=== PATIENT | female | born 1975 | race Caucasian/White ===

== ENCOUNTER 2021-03-21 19:02 | Emergency (ER) | payer OTHER ==
[2021-03-21] MEDS ORDERED: ACETAMINOPHEN 325 MG TABLET PO STA (19:32)
[2021-03-21] MEDS ORDERED: SODIUM CHLORIDE 0.9% 1,000 ML IV STA (19:32)
--- NOTE | 2021-03-21 19:34 | ED Physician Documentation ---
PD HPI SYNCOPE - Stated complaint Stated Complaint: PASSED OUT/RT HIP PX - Chief complaint Chief Complaint: Neuro - History obtained from History obtained from: Patient, Friend - Additional information Additional information: This is a generally healthy 45-year-old woman. 10 years ago she was having a lot of trouble with endometriosis and had a hysterectomy and bowel resection for same. She is maintained on hormone therapy but is otherwise healthy with no other surgeries in the past. Last week she has had indolent atraumatic and worsening right hip pain. Today she went for a walk and the pain became quite severe. She sat down on a bench and started to become woozy for about 2 minutes before syncopized them for about 30 seconds without postictal period. There was no seizure activity. She is never passed out before. No associated chest pain or trouble breathing. No pedal edema or calf pain. She has been fully immunized against Covid. A few years since her last mammogram. Review of Systems Ten Systems: 10 systems reviewed and negative Constitutional: reports: Fatigue Cardiac: denies: Chest pain / pressure, Palpitations Respiratory: denies: Dyspnea, Cough PD PAST MEDICAL HISTORY - Present Medications Home Medications: Ambulatory Orders Medication Instructions Recorded Confirmed Estrogen Patch 03/21/21 Estrogens, Conjugated Cream 1 gm VG QPM 03/21/21 03/21/21 [Premarin Cream] - Allergies Allergies/Adverse Reactions: Allergies Allergy/AdvReac Type Severity Reaction Status Date / Time No Known Drug Allergies Allergy Verified 03/21/21 19:11 PD ED PE NORMAL - Vitals Vital signs reviewed: Yes - General General: Alert and oriented X 3, No acute distress, Well developed/nourished - HEENT HEENT: PERRL, EOMI, Ears normal, Pharynx benign - Neck Neck: Supple, no meningeal sign, No bony TTP - Cardiac Cardiac: RRR, No murmur - Respiratory Respiratory: No respiratory distress, Clear bilaterally - Abdomen Abdomen: Normal bowel sounds, Soft, Non tender - Back Back: No CVA TTP, No spinal TTP - Derm Derm: Normal color, Warm and dry - Extremities Extremities: Other (Significant pain with especially external rotation more than internal rotation of the right hip without bony tenderness of the hip itself. 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, Normal speech Eye Opening: Spontaneous Motor: Obeys Commands Verbal: Oriented GCS Score: 15 Results - Vitals Vitals: Vital Signs - 24 hr 03/21/21 19:08 Temperature 36.5 C Heart Rate 63 Respiratory 16 Rate Blood Pressure 114/75 O2 Saturation 99 Oxygen O2 Source Room air - EKG (time done) 1919 Rate: Rate (enter#) (56) Rhythm: NSR [place]: Normal Intervals: Normal LA QRS: Normal Ischemia: Normal ST segments Computer interpretation: Agree with computer - Labs Labs: Laboratory Tests 03/21/21 03/21/21 03/21/21 19:27 19:27 19:27 WBC 12.1 H RBC 4.29 Hgb 13.1 Hct 40.2 MCV 93.7 MCH 30.5 MCHC 32.6 RDW 13.0 Plt Count 209 MPV 11.0 H Neut # (Auto) 9.6 H Lymph # (Auto) 1.6 Newton # (Auto) 0.8 Eos # (Auto) 0.1 Baso # (Auto) 0.1 Absolute Nucleated RBC 0.00 Nucleated RBC % 0.0 D-Dimer Sodium 135 Potassium 3.6 Chloride 98 L Carbon Dioxide 27 Anion Gap 10.0 BUN 17 Creatinine 1.0 Estimated GFR (MDRD) 59 L Glucose 111 H Calcium 8.4 L Total Bilirubin 1.0 AST 19 ALT 12 Alkaline Phosphatase 47 Troponin I High Sens < 2.3 L B-Natriuretic Peptide Total Protein 6.8 Albumin 4.4 Globulin 2.4 Albumin/Globulin Ratio 1.8 03/21/21 03/21/21 19:27 19:45 WBC RBC Hgb Hct MCV MCH MCHC RDW Plt Count MPV Neut # (Auto) Lymph # (Auto) Newton # (Auto) Eos # (Auto) Baso # (Auto) Absolute Nucleated RBC Nucleated RBC % D-Dimer < 200.0 L Sodium Potassium Chloride Carbon Dioxide Anion Gap BUN Creatinine Estimated GFR (MDRD) Glucose Calcium Total Bilirubin AST ALT Alkaline Phosphatase Troponin I High Sens B-Natriuretic Peptide 17 Total Protein Albumin Globulin Albumin/Globulin Ratio PD MEDICAL DECISION MAKING - ED course ED course: 45-year-old woman with syncopal episode after painful episode with her hip. X- ray of the hip was negative. No serious cause of syncope identified and her history is consistent with vasovagal syncope. Departure - Departure Disposition: 01 Home, Self Care Clinical Impression: Right hip pain Syncope Qualifiers: Syncope type: vasovagal syncope Qualified Code(s): R55 - Syncope and collapse Condition: Good Record reviewed to determine appropriate education?: Yes Instructions: ED Syncope Vasovagal Comments: Given the hip pain, I would recommend you follow-up with your physician, return if worse or if you develop infectious symptoms such as fever. Otherwise consider MRI of the hip since the x-ray was negative to evaluate things like potentially a labral tear. Tylenol as needed for pain. Do not drive today.
[2021-03-21 19:37] LABS: BASOPHILS # (AUTO) 0.1 10^3/uL (0.0-0.1); BASOPHILS % (AUTO) 0.6 %; EOSINOPHILS # (AUTO) 0.1 10^3/uL (0.0-0.7); EOSINOPHILS % (AUTO) 0.4 %; HCT - HEMATOCRIT 40.2 % (37.0-47.0); HGB - HEMOGLOBIN 13.1 g/dL (12.0-16.0); LYMPHOCYTES # (AUTO) 1.6 10^3/uL (1.5-3.5); LYMPHOCYTES % (AUTO) 13.1 %; MEAN CORPUSCULAR HEMOGLOBIN 30.5 pg (27.0-31.0); MEAN CORPUSCULAR HGB CONC 32.6 g/dL (32.0-36.0); MEAN CORPUSCULAR VOLUME 93.7 fL (81.0-99.0); MONOCYTES # (AUTO) 0.8 10^3/uL (0.0-1.0); MONOCYTES % (AUTO) 6.5 %; NEUTROPHILS # (AUTO) 9.6 10^3/uL (1.5-6.6); NEUTROPHILS % (AUTO) 79.1 %; PLT - PLATELET COUNT 209 10^3/uL (130-450); RED BLOOD COUNT 4.29 10^6/uL (4.20-5.40); WHITE BLOOD COUNT 12.1 x10^3/uL (4.8-10.8)
[2021-03-21 19:49] LABS: ALBUMIN 4.4 g/dL (3.2-5.5); ALBUMIN/GLOBULIN RATIO 1.8 (1.0-2.2); CALCIUM 8.4 mg/dL (8.5-10.3); POTASSIUM 3.6 mmol/L (3.5-5.0); TOTAL PROTEIN 6.8 g/dL (6.7-8.2)
--- NOTE | 2021-03-21 20:26 | XRAY Report ---
PROCEDURE: Hip w/Pelvis 2-3V RT INDICATIONS: hip pain TECHNIQUE: AP pelvis with lateral view(s) of the right hip(s). COMPARISON: None. FINDINGS: Bones: No fractures or dislocations. Pelvic ring appears intact. No suspicious bony lesions. Soft tissues: The visualized bowel gas pattern is normal. No suspicious soft tissue calcifications. IMPRESSION: Normal right hip. Reviewed by: Kenisha Rouse MD on 03/21/2021 8:25 PM PDT Approved by: Kenisha Rouse MD on 03/21/2021 8:25 PM PDT Station ID: [id number]
[2021-03-21 20:58] VITALS: BP 111/69
== END 2021-03-21 22:06 | disposition home or self-care (01) ==
LOC: ED 19:02
DX: M25.551 Pain in right hip (principal); R55 Syncope and collapse
CPT/HCPCS: 36415; 73502; 80053; 83880; 84484; 85025; 85379; 93005; 96360; 99284; A9270

== ENCOUNTER 2022-04-25 12:49 | Emergency (ER) | payer OTHER ==
[2022-04-25 13:16] LABS: BASOPHILS # (AUTO) 0.1 10^3/uL (0.0-0.1); BASOPHILS % (AUTO) 1.3 %; EOSINOPHILS # (AUTO) 0.1 10^3/uL (0.0-0.7); EOSINOPHILS % (AUTO) 1.1 %; HCT - HEMATOCRIT 41.4 % (37.0-47.0); HGB - HEMOGLOBIN 13.8 g/dL (12.0-16.0); LYMPHOCYTES % (AUTO) 20.8 %; MEAN CORPUSCULAR HEMOGLOBIN 30.6 pg (27.0-31.0); MEAN CORPUSCULAR HGB CONC 33.3 g/dL (32.0-36.0); MEAN CORPUSCULAR VOLUME 91.8 fL (81.0-99.0); MEAN PLATELET VOLUME 11.2 fL (7.9-10.8); MONOCYTES # (AUTO) 0.5 10^3/uL (0.0-1.0); MONOCYTES % (AUTO) 10.1 %; NEUTROPHILS # (AUTO) 3.2 10^3/uL (1.5-6.6); NEUTROPHILS % (AUTO) 66.5 %; PLT - PLATELET COUNT 204 10^3/uL (130-450); RED BLOOD COUNT 4.51 10^6/uL (4.20-5.40); RED CELL DISTRIBUTION WIDTH 13.2 % (12.0-15.0); WHITE BLOOD COUNT 4.8 x10^3/uL (4.8-10.8)
--- NOTE | 2022-04-25 13:25 | XRAY Report ---
PROCEDURE: Chest 1 View X-Ray INDICATIONS: Chest pain TECHNIQUE: One view of the chest was acquired. COMPARISON: None FINDINGS: Surgical changes and devices: None. Lungs and pleura: No pleural effusions or pneumothorax. Lungs are clear. Mediastinum: Mediastinal contours appear normal. Heart size is normal. Bones and chest wall: No suspicious bony lesions. Overlying soft tissues appear unremarkable. IMPRESSION: No acute cardiopulmonary findings. Reviewed by: Addie Fermin MD on 04/25/2022 1:23 PM PDT Approved by: Addie Fermin MD on 04/25/2022 1:23 PM PDT Station ID: [id number]
[2022-04-25 13:26] LABS: ALBUMIN 4.3 g/dL (3.2-5.5); ALBUMIN/GLOBULIN RATIO 1.7 (1.0-2.2); BILIRUBIN,TOTAL 0.8 mg/dL (0.2-1.0); CALCIUM 8.9 mg/dL (8.5-10.3); CREATININE 0.7 mg/dL (0.4-1.0); POTASSIUM 3.9 mmol/L (3.5-5.0); TOTAL PROTEIN 6.8 g/dL (6.7-8.2)
--- NOTE | 2022-04-25 13:30 | ED Physician Documentation ---
History of Present Illness - Stated complaint Stated Complaint: HEART PALP/SOA - Chief complaint Chief Complaint: Cardiac - Additonal information Additional information: 38-year-old female presents emergency department for evaluation of palpitations. 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 She states the sensation lasted for about less than a minute but she felt as though she was going to pass out. Once that went away she began to feel just generally weak as well as having some shortness of breath. She denies that she was having any chest pain. After her symptoms and go away for about an hour she called her partner who drove her to the hospital. No history of hypertension or diabetes. Does not know family history of tachyarrhythmia. She has not fainted. No fevers cough. Review of Systems Constitutional: reports: Fatigue. denies: Fever, Chills Nose: reports: Reviewed and negative Throat: reports: Reviewed and negative Cardiac: reports: Palpitations. denies: Chest pain / pressure, Pedal edema, Calf pain Respiratory: reports: Dyspnea. denies: Cough GI: reports: Reviewed and negative : reports: Reviewed and negative Skin: reports: Reviewed and negative Musculoskeletal: reports: Reviewed and negative PD PAST MEDICAL HISTORY - Past Medical History ACTIVITIES LEADER: Endometriosis - Past Surgical History Past Surgical History: Yes General: Bowel surgery /ACTIVITIES LEADER: Hysterectomy - Present Medications Home Medications: Ambulatory Orders Medication Instructions Recorded Confirmed Estrogen Patch 03/21/21 Estrogens, Conjugated Cream 1 gm VG QPM 03/21/21 03/21/21 [Premarin Cream] - Allergies Allergies/Adverse Reactions: Allergies Allergy/AdvReac Type Severity Reaction Status Date / Time No Known Drug Allergies Allergy Verified 04/25/22 12:58 - Social History Does the pt smoke?: No Smoking Status: Never smoker Does the pt drink ETOH?: No Does the pt have substance abuse?: No PD ED PE NORMAL - General General: Alert and oriented X 3, No acute distress - HEENT HEENT: PERRL - Neck Neck: No adenopathy - Cardiac Cardiac: RRR, No murmur, No gallop, Strong equal pulses - Respiratory Respiratory: No respiratory distress, Clear bilaterally - Abdomen Abdomen: Normal bowel sounds, Soft - Derm Derm: Warm and dry - Extremities Extremities: No deformity - Neuro Neuro: Alert and oriented X 3, pet ambassador 2-12 intact Eye Opening: Spontaneous Motor: Obeys Commands Verbal: Oriented GCS Score: 15 Results - Vitals Vitals: Vital Signs - 24 hr 04/25/22 12:53 Temperature 36.4 C L Heart Rate 52 L Respiratory 16 Rate Blood Pressure 139/64 H O2 Saturation 100 Oxygen O2 Source Room air - EKG (time done) 1252 Rate: Rate (enter#) Rhythm: NSR [place]: Normal Intervals: Normal [place] QRS: Normal Ischemia: Normal ST segments Compare to prior EKG: Old EKG unavailable Computer interpretation: Agree with computer - Labs Labs: Laboratory Tests 04/25/22 04/25/22 04/25/22 13:08 13:08 13:08 WBC 4.8 RBC 4.51 Hgb 13.8 Hct 41.4 MCV 91.8 MCH 30.6 MCHC 33.3 RDW 13.2 Plt Count 204 MPV 11.2 H Neut # (Auto) 3.2 Lymph # (Auto) 1.0 L [place] # (Auto) 0.5 Eos # (Auto) 0.1 Baso # (Auto) 0.1 Absolute Nucleated RBC 0.00 Nucleated RBC % 0.0 Sodium 137 Potassium 3.9 Chloride 103 Carbon Dioxide 27 Anion Gap 7.0 BUN 15 Creatinine 0.7 Estimated GFR (MDRD) 89 Glucose 105 H Calcium 8.9 Total Bilirubin 0.8 AST 21 ALT 13 Alkaline Phosphatase 40 L Troponin I High Sens < 2.3 L Total Protein 6.8 Albumin 4.3 Globulin 2.5 Albumin/Globulin Ratio 1.7 Lipase 40 TSH 04/25/22 13:08 WBC RBC Hgb Hct MCV MCH MCHC RDW Plt Count MPV Neut # (Auto) Lymph # (Auto) [place] # (Auto) Eos # (Auto) Baso # (Auto) Absolute Nucleated RBC Nucleated RBC % Sodium Potassium Chloride Carbon Dioxide Anion Gap BUN Creatinine Estimated GFR (MDRD) Glucose Calcium Total Bilirubin AST ALT Alkaline Phosphatase Troponin I High Sens Total Protein Albumin Globulin Albumin/Globulin Ratio Lipase TSH 1.44 - Rads (name of study) cxr Radiology: Final report received (No acute cardiopulmonary findings) PD MEDICAL DECISION MAKING - ED course Complexity details: considered differential, d/w patient ED course: 38-year-old female presents emergency department for evaluation of palpitations and a racing heart that she noticed this morning. No history of similar in the past. On presentation to the emergency department she is well-appearing. EKG shows normal sinus rhythm. While here on the monitor she has had no ectopy or tachyarrhythmia. We did obtain routine labs and included CBC electrolytes TSH and troponin. All were essentially unremarkable. Chest x-ray was without acute focal findings. Etiology of her brief palpitations is not clear. I am advising patient close follow-up with PCP. She would likely benefit from a Holter monitor. 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 Here in the emergency Department we did obtain screening labs that were essentially normal for age including your troponin and and your thyroid. Your EKG is normal. Your chest x-ray is normal. I encourage you to follow closely with your primary care provider you would benefit from referral for a Holter. Reasons to return to the emergency department would include sudden severe chest pain, shortness of air, any fainting episodes or the sustained sensation of a racing heart
[2022-04-25 14:16] VITALS: BP 120/80
== END 2022-04-25 14:15 | disposition home or self-care (01) ==
LOC: ED 12:49
DX: R00.2 Palpitations (principal)
CPT/HCPCS: 36415; 80053; 83690; 84443; 84484; 85025; 93005; 99284

== ENCOUNTER 2022-07-02 09:19 | Outpatient (CLI) | payer OTHER ==
[2022-07-02 15:19] LABS: BUN - BLOOD UREA NITROGEN 16 mg/dL (6-20); CALCIUM 8.3 mg/dL (8.5-10.3); CARBON DIOXIDE - CO2 26 mmol/L (21-32); CHLORIDE 104 mmol/L (101-111); CHOL/HDL RATIO 3.3 (<4.4); CHOLESTEROL 173 mg/dL; CREATININE 0.6 mg/dL (0.4-1.0); GFR - MDRD 107 (>89); GLUCOSE 92 mg/dL (70-100); HDL CHOLESTEROL 52 mg/dL; LDL CHOLESTEROL,CALCULATED 111 mg/dL; LDL/HDL RATIO 2.1 (<4.4); SODIUM 136 mmol/L (135-145); TRIGLYCERIDES 48 mg/dL; VLDL CHOLESTEROL 10 mg/dL
[2022-07-02 15:25] LABS: CRP - C-REACTIVE PROTEIN < 1.0 mg/dL (0-1.0)
[2022-07-05 20:07] LABS: MAGNESIUM RBC 5.4 mg/dL (4.2-6.8)
== END 2022-07-02 09:20 | disposition home or self-care (01) ==
LOC: LAB.S 09:19
PROVIDERS: ATTEND Naturopath
DX: R00.2 Palpitations (principal); R06.02 Shortness of breath; R53.83 Other fatigue
CPT/HCPCS: 36415; 80048; 80061; 81599; 82172; 82175; 82300; 83655; 83721; 83735; 83825; 86140

== ENCOUNTER 2023-04-17 12:15 | Outpatient (CLI) | payer OTHER ==
[2023-04-17 18:02] LABS: BASOPHILS # (AUTO) 0.1 10^3/uL (0.0-0.1); BASOPHILS % (AUTO) 0.9 %; EOSINOPHILS % (AUTO) 0.6 %; HCT - HEMATOCRIT 45.4 % (37.0-47.0); HGB - HEMOGLOBIN 14.6 g/dL (12.0-16.0); LYMPHOCYTES # (AUTO) 1.4 10^3/uL (1.5-3.5); LYMPHOCYTES % (AUTO) 25.4 %; MEAN CORPUSCULAR HEMOGLOBIN 29.6 pg (27.0-31.0); MEAN CORPUSCULAR HGB CONC 32.2 g/dL (32.0-36.0); MEAN CORPUSCULAR VOLUME 92.1 fL (81.0-99.0); MEAN PLATELET VOLUME 11.8 fL (7.9-10.8); MONOCYTES # (AUTO) 0.4 10^3/uL (0.0-1.0); MONOCYTES % (AUTO) 6.7 %; NEUTROPHILS # (AUTO) 3.6 10^3/uL (1.5-6.6); NEUTROPHILS % (AUTO) 66.2 %; PLT - PLATELET COUNT 250 10^3/uL (130-450); RED BLOOD COUNT 4.93 10^6/uL (4.20-5.40); WHITE BLOOD COUNT 5.4 x10^3/uL (4.8-10.8)
[2023-04-17 18:12] LABS: ALBUMIN 4.4 g/dL (3.2-5.5); ALBUMIN/GLOBULIN RATIO 1.6 (1.0-2.2); BILIRUBIN,TOTAL 0.8 mg/dL (0.2-1.0); CALCIUM 9.1 mg/dL (8.5-10.3); CREATININE 0.7 mg/dL (0.6-1.3); POTASSIUM 4.1 mmol/L (3.5-4.5); TOTAL PROTEIN 7.2 g/dL (6.4-8.9)
== END 2023-04-17 12:30 | disposition home or self-care (01) ==
LOC: LAB.N 12:15
PROVIDERS: ATTEND Registered Nurse
DX: R10.9 Unspecified abdominal pain (principal); V49.50XA Passenger injured in collision with unspecified motor vehicles in traffic accident, initial encounter
CPT/HCPCS: 36415; 80053; 85025

== ENCOUNTER 2023-04-17 14:05 | Outpatient (CLI) | payer OTHER ==
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
== END 2023-04-17 14:06 | disposition home or self-care (01) ==
LOC: DI 14:05
PROVIDERS: ATTEND Registered Nurse
DX: R10.9 Unspecified abdominal pain (principal)
CPT/HCPCS: 36415; 80053; 85025

== ENCOUNTER 2023-04-21 08:00 | Outpatient (CLI) | payer OTHER ==
--- NOTE | 2023-04-21 17:49 | XRAY Report ---
PROCEDURE: Hip 2 View RT INDICATIONS: RIGHT HIP PAIN TECHNIQUE: An AP view of the pelvis and a frog-leg lateral view of the right hip were acquired. COMPARISON: None. FINDINGS: Bones: No fractures or dislocations. No suspicious bony lesions. Mild right hip degenerative paulino ge. Soft tissues: No suspicious soft tissue calcifications or masses. IMPRESSION: Mild right hip degenerative change. No acute bony abnormality. Comment: If there remains a high clinical concern for fracture, consider cross-sectional imaging now. If pain persists, consider repeat x-ray in 10-14 days or cross-sectional imaging. Reviewed by: Johnny Morelos MD on 04/21/2023 5:47 PM PDT Approved by: Johnny Morelos MD on 04/21/2023 5:47 PM PDT Station ID: [id number]
== END 2023-04-21 23:59 | disposition home or self-care (01) ==
LOC: DI.WOS 08:00
PROVIDERS: ATTEND Orthopaedic Surgery Sports Medicine
DX: M16.11 Unilateral primary osteoarthritis, right hip (principal)

== ENCOUNTER 2023-04-23 14:21 | Outpatient (CLI) | payer OTHER ==
--- NOTE | 2023-04-23 18:16 | XRAY Report ---
PROCEDURE: Cervical Spine Complete INDICATIONS: CERVICAL SPINE/THORACIC PAIN TECHNIQUE: 4 views of the cervical spine acquired. COMPARISON: None. FINDINGS: Bones: No fractures or dislocations to the T1 level. Disc space narrowing and anterior osteophyte C6 -7. Flexion and extension views shows no evidence of segmental instability. Soft tissues: No prevertebral soft tissue swelling. IMPRESSION: C6-7 degenerative disc disease without segmental instability Reviewed by: Jason Rich MD on 04/23/2023 5:15 PM DAREN Approved by: Jason Rich MD on 04/23/2023 5:15 PM AKKEKE Station ID: [id number]
--- NOTE | 2023-04-23 18:17 | XRAY Report ---
PROCEDURE: Thoracic Spine 2 View INDICATIONS: CERVICAL SPINE/THORACIC PAIN TECHNIQUE: 2 views of the thoracic spine were acquired. COMPARISON: None. FINDINGS: Bones: No fractures or dislocations. No suspicious bony lesions. 12 pairs of ribs are noted, and a ppear intact where visualized. Soft tissues: No paravertebral stripe thickening. IMPRESSION: Unremarkable thoracic spine radiographs Reviewed by: Jason Rich MD on 04/23/2023 5:16 PM [facility]DT Approved by: Jason Rich MD on 04/23/2023 5:16 PM AKDT Station ID: [id number]
== END 2023-04-23 14:22 | disposition home or self-care (01) ==
LOC: DI 14:21
PROVIDERS: ATTEND Naturopath
DX: M54.6 Pain in thoracic spine (principal); S13.4XXA Sprain of ligaments of cervical spine, initial encounter; M50.323 Other cervical disc degeneration at C6-C7 level

== ENCOUNTER 2023-08-04 10:55 | Outpatient (CLI) | payer OTHER ==
--- NOTE | 2023-08-04 21:03 | XRAY Report ---
PROCEDURE: Sinus Complete INDICATIONS: PERSISTANT DIZZINESS AND SINUS SYMPTOMS TECHNIQUE: 3 views of the sinuses were acquired. COMPARISON: None FINDINGS: Sinuses: The visualized sinuses well aerated without air-fluid levels. The visualized mastoids also appear clear. Bones: No suspicious bony lesions. Nasal septum is midline. IMPRESSION: Unremarkable paranasal sinus radiographs Reviewed by: Jason Rich MD on 08/04/2023 8:[address] [facility] Approved by: Jason Rich MD on 08/04/2023 8:[address] [facility] Station ID: [id number]
== END 2023-08-04 10:56 | disposition home or self-care (01) ==
LOC: DI.S 10:55
PROVIDERS: ATTEND Naturopath
DX: R42 Dizziness and giddiness (principal); J01.90 Acute sinusitis, unspecified

== ENCOUNTER 2023-10-28 14:56 | Outpatient (CLI) | payer OTHER ==
--- NOTE | 2023-10-29 07:33 | Mammography Report ---
BILATERAL DIGITAL SCREENING MAMMOGRAM 3D/2D WITH EXAGGERATED CC: 10/28/2023 CLINICAL: Baseline exam. Routine screening. No prior exams were available for comparison. Both breasts are heterogeneously dense, which may obscure small masses (category c / 51-75% glandular tissue). No significant masses, calcifications, or other findings are seen in either breast. IMPRESSION: NEGATIVE There is no mammographic evidence of malignancy. A 1 year screening mammogram is recommended. Based on the Tyrer Cuzick model (a risk assessment model) the patient's lifetime risk is 14.4% and he r 10 year risk is 3.5%. According to the ACR, ACS, and NCCN guidelines, an annual breast MRI exam deja ng with mammogram is recommended if the patient's lifetime risk is 20% or greater. This exam was interpreted at Station ID: [id number]. NOTE: For mammograms, a report in lay terms will be sent to the patient. Approximately 15% of breast malignancies will not be visualized mammographically. In the management of a palpable breast mass, a negative mammogram must not discourage biopsy of a clinically suspicious lesion. Electronically Signed By: Hayden Hobbs M.D. atvito/sandra:10/29/2023 07:16:06 ACR BI-RADS Category 1: Negative [id number] PARENCHYMAL PATTERN: (D) - The breast(s) demonstrate(s) heterogeneously dense fibroglandular paryuliya howard. BI-RADS CATEGORY: (1) - 1 RECOMMENDATION: (ANNUAL) - Recommend routine annual screening mammography. [id number] 1 year screening LATERALITY: (B)
== END 2023-10-28 14:57 | disposition home or self-care (01) ==
LOC: DI.S 14:56
DX: Z12.31 Encounter for screening mammogram for malignant neoplasm of breast (principal); R92.333 Mammographic heterogeneous density, bilateral breasts